=== PATIENT | female | born 1990 | race African-American/Black ===

== ENCOUNTER 2020-05-09 18:03 | Emergency (ER) | payer OTHER ==
--- NOTE | 2020-05-09 18:46 | ER Document Report ---
ED Medical Screen (RME) - General Chief Complaint: Leg Pain Stated Complaint: LEG PAIN Time Seen by Provider: 05/09/20 18:37 Mode of Arrival: Ambulatory Information source: Patient Notes: 29-year-old female presented to ED for complaint of pain in the back of her leg. She states is been going on and off for 1 or 2 weeks. She states she does drive 2 hours a day to work and sits all day at work. She states is a burning sensation to the back of her leg. She states that she does workout occasionally but this is not anything that is from working out. She also takes some kind of diet medicines. She denies any past medical or surgical history she denies any smoking drinking or drugs. She states she has a primary doctor at [facility] Dr. Almanzar and has not been to see him for this pain pain. I have greeted and performed a rapid initial assessment of this patient. A comprehensive ED assessment and evaluation of the patient, analysis of test results and completion of medical decision making process will be conducted by an additional ED providers. - Related Data Allergies/Adverse Reactions: No Known Allergies Allergy (Verified 05/09/20 18:42) Physical Exam - Vital signs Vitals: Temp Pulse Resp BP Pulse Ox 98.0 F 85 18 130/76 H 100 05/09/20 18:08 05/09/20 18:08 05/09/20 18:08 05/09/20 18:08 05/09/20 18:08 Course - Vital Signs Vital signs: Temp Pulse Resp BP Pulse Ox 98.0 F 85 18 130/76 H 100 05/09/20 18:08 05/09/20 18:08 05/09/20 18:08 05/09/20 18:08 05/09/20 18:08
[2020-05-09 19:29] LABS: ABSOLUTE EOSINOPHILS # (AUTO) 0.1 10^3/uL (0.0-0.6); ABSOLUTE LYMPHOCYTES (AUTO) 2.9 10^3/uL (0.5-4.7); ABSOLUTE MONOCYTES (AUTO) 0.4 10^3/uL (0.1-1.4); ABSOLUTE NEUT (AUTO) 3.2 10^3/uL (1.7-8.2); BASOPHILS % (AUTO) 0.5 % (0-2); EOSINOPHILS % (AUTO) 0.9 % (0-6); HEMATOCRIT 39.8 % (36.0-47.0); HEMOGLOBIN 13.3 g/dL (12.0-15.5); LYMPHOCYTES % (AUTO) 44.2 % (13-45); MEAN CORPUSCULAR HEMOGLOBIN 27.5 pg (27.0-33.4); MEAN CORPUSCULAR HGB CONC 33.5 g/dL (32.0-36.0); MEAN CORPUSCULAR VOLUME 82 fl (80-97); PLATELET COUNT 222 10^3/uL (150-450); RED BLOOD COUNT 4.85 10^6/uL (3.72-5.28); RED CELL DISTRIBUTION WIDTH 13.3 % (11.5-14.0); SEGMENTED NEUTROPHILS % (AUTO) 48.4 % (42-78); TOTAL CELLS COUNTED % (AUTO) 100 %; WHITE BLOOD COUNT 6.6 10^3/uL (4.0-10.5)
[2020-05-09 19:33] LABS: INTERNATIONAL RATION (INR) 0.88; PROTHROMBIN TIME 12.1 SEC (11.4-15.4)
[2020-05-09 19:34] LABS: PARTIAL THROMBOPLASTIN TIME 35.3 SEC (23.5-35.8)
[2020-05-09 19:35] LABS: APPEARANCE,URINE CLEAR; BILIRUBIN,URINE NEGATIVE (NEGATIVE); COLOR,URINE STRAW; GLUCOSE, URINE NEGATIVE (NEGATIVE); KETONES,URINE NEGATIVE (NEGATIVE); LEUKOCYTE ESTERASE,URINE NEGATIVE (NEGATIVE); NITRITE,URINE NEGATIVE (NEGATIVE); PROTEIN,URINE NEGATIVE (NEGATIVE); URINE SPECIFIC GRAVITY 1.008; UROBILINOGEN,URINE NEGATIVE mg/dL (<2.0)
[2020-05-09 19:39] LABS: ALBUMIN 4.8 g/dL (3.5-5.0); ALKALINE PHOSPHATASE 58 U/L (38-126); ANION GAP 8 (5-19); ASPARTATE AMINO TRANSFERASE 26 U/L (14-36); BILIRUBIN,DIRECT 0.2 mg/dL (0.0-0.4); BILIRUBIN,TOTAL 0.3 mg/dL (0.2-1.3); BLOOD UREA NITROGEN 10 mg/dL (7-20); CALCIUM 9.5 mg/dL (8.4-10.2); CARBON DIOXIDE 29 mmol/L (22-30); CHLORIDE 103 mmol/L (98-107); GLUCOSE 86 mg/dL (75-110); POTASSIUM 3.9 mmol/L (3.6-5.0); TOTAL PROTEIN 7.6 g/dL (6.3-8.2)
--- NOTE | 2020-05-09 22:02 | ER Document Report ---
ED Medical Screen (E) - General Chief Complaint: Leg Pain Stated Complaint: LEG PAIN Time Seen by Provider: 05/09/20 18:37 Mode of Arrival: Ambulatory Information source: Patient Notes: 05/09/20 18:46 - Nursing Note by STEVE ROGEL Num: [id number] : 1990 Patient Age: 29 Pt ambulated to triage room without difficulty. Pt reports bilateral calf pain x 2 weeks. Pt denies injury. Pt sitting up to chair, Resp even & unlabored. Pt able to speak in complete sentences. HERIBERTO Honeycutt present for triage. ED Medical Screen ([facility] notes) - General Chief Complaint: Leg Pain Stated Complaint: LEG PAIN Time Seen by Provider: 05/09/20 18:37 Mode of Arrival: Ambulatory Information source: Patient Notes: 29-year-old female presented to ED for complaint of pain in the back of her leg. She states is been going on and off for 1 or 2 weeks. She states she does drive 2 hours a day to work and sits all day at work. She states is a burning sensation to the back of her leg. She states that she does workout occasionally but this is not anything that is from working out. She also takes some kind of diet medicines. She denies any past medical or surgical history she denies any smoking drinking or drugs. She states she has a primary doctor at [facility] Dr. Almanzar and has not been to see him for this pain pain. MY NOTES 29-year-old black female arrives with chief complaint of pain to the back of her leg for around 2 weeks. She has a history of prolonged flexion of her legs during driving and at work. She works as a counselor. patient reports she dr brandt 1 hour to work in 1 hour back and works 5 to 6 days a week from 7 AM to 4 PM. Her boyfriend has been helping her workout with weights at 135 pounds for leg lifts. She has been exercising more recently in order to help strengthen her body. Patient denies any . She denies any abuse or injury. She does have a bruise to her left lateral calf approximately 4 cm diameter and she does not know how she got this. Her PT PTT INR CBC chemistries ultrasound all are within normal limits. Will check CPK - HPI Onset: Last week Onset/Duration: Sudden, Persistent Quality of pain: Achy Severity: Mild Pain Level: 1 Associated Symptoms: None Exacerbated by: Movement Relieved by: Denies Similar symptoms previously: No Recently seen / treated by doctor: No - Related Data Allergies/Adverse Reactions: No Known Allergies Allergy (Verified 05/09/20 18:42) Past Medical History - General Information source: Patient - Social History Cigarette use (# per day): No Chew tobacco use (# tins/day): No Frequency of alcohol use: None Drug Abuse: None Lives with: Family Family history: None Review of Systems - Review of Systems Constitutional: No symptoms reported EENT: No symptoms reported Cardiovascular: No symptoms reported Respiratory: No symptoms reported Gastrointestinal: No symptoms reported Genitourinary: No symptoms reported Female Genitourinary: No symptoms reported Musculoskeletal: See HPI, Muscle pain - Patient points to left greater than right calf pain but no edema and no GI no nodular lesions. She does have a 4 cm left lateral calf ecchymosis hematoma., Muscle stiffness Skin: No symptoms reported Hematologic/Lymphatic: No symptoms reported Neurological/Psychological: No symptoms reported Physical Exam - Vital signs Vitals: Temp Pulse Resp BP Pulse Ox 98.0 F 85 18 130/76 H 100 05/09/20 18:08 05/09/20 18:08 05/09/20 18:08 05/09/20 18:08 05/09/20 18:08 Interpretation: Normal - HEENT Head: Normocephalic, Atraumatic Eyes: Normal Pupils: PERRL Sinus: Normal Nasal: Normal Mouth/Lips: Normal Mucous membranes: Normal Pharynx: Normal Neck: Normal - Respiratory Respiratory status: No respiratory distress Chest status: Nontender Breath sounds: Normal Chest palpation: Normal - Cardiovascular Rhythm: Regular Heart sounds: Normal auscultation Murmur: No - Abdominal Inspection: Normal Distension: No distension Bowel sounds: Normal Tenderness: Nontender Organomegaly: No organomegaly - Rectal Hemorrhoids: Other - deferred - Genitourinary Biman[place] exam: Other - deferred - Back Back: Normal - Extremities General upper extremity: Normal inspection General lower extremity: Tender - mamie gastrognemi - Neurological Neuro grossly intact: Yes Cognition: Normal Orientation: AAOx4 Eron Coma Scale Eye Opening: Spontaneous [place] Coma Scale Verbal: Oriented Eron Coma Scale Motor: Obeys Commands Eron Coma Scale Total: 15 Speech: Normal Motor strength normal: LUE, RUE, LLE, RLE Sensory: Normal - Psychological Associated symptoms: Normal affect - Skin Skin Temperature: Warm Skin Moisture: Dry Course - Vital Signs Vital signs: Temp Pulse Resp BP Pulse Ox 98.0 F 85 18 130/76 H 100 05/09/20 18:08 05/09/20 18:08 05/09/20 18:08 05/09/20 18:08 05/09/20 18:08 - Laboratory Result Diagrams: 05/09/20 18:56 05/09/20 18:56 Laboratory results interpreted by me: 05/09/20 18:56 Est GFR (MDRD) Non-Af 52 L - Diagnostic Test Radiology reviewed: Reports reviewed Doctor's Discharge - Discharge Clinical Impression: leg muscular overuse, Myalgia Condition: Good Disposition: HOME, SELF-CARE Additional Instructions: Follow-up with personal doctor if symptoms persist and try to avoid overuse by allowing the muscles to heal for the next 1 week. Try taking oral vitamin C 500 mg with a meal; may eat some yogurt or ice cream in order to help with calcium intake for your muscles. May take Motrin [id number] or Lodine by prescription for your leg pain. Prescriptions: Etodolac [Lodine] 400 mg PO BID PRN #14 tablet PRN Reason: Forms: Return to Work
[2020-05-09 23:09] VITALS: BP 126/72
--- NOTE | 2020-05-10 00:10 | RADIOLOGY REPORT (SQ) ---
EXAM DESCRIPTION: Left lower extremity venous duplex exam. CLINICAL HISTORY: 29 years Female; Left calf pain and injury TECHNIQUE: Multiple grayscale sonographic images of both legs were obtained utilizing a high-frequency linear array transducer supplemented with color Doppler, compression and augmentation techniques. COMPARISON: None. FINDINGS: Right leg veins: Only the common femoral vein was evaluated. This was normal with normal compression and augmentation. Left leg veins: Normal compression and augmentation is identified from the level of the common femoral vein to the calf veins. Normal color flow and spectral waveforms. No edema. No popliteal cyst IMPRESSION: No evidence of left lower extremity DVT.
== END 2020-05-09 23:08 | disposition home or self-care (01) ==
LOC: ER 18:03
DX: M70.862 Other soft tissue disorders related to use, overuse and pressure, left lower leg (principal); M70.861 Other soft tissue disorders related to use, overuse and pressure, right lower leg; M79.10 Myalgia, unspecified site; M79.605 Pain in left leg; M79.604 Pain in right leg
CPT/HCPCS: 36415; 80053; 81001; 82550; 84703; 85025; 85610; 85730; 93971; 99284